=== PATIENT | female | born 1950 | race Two or more races ===

== ENCOUNTER 2017-06-07 00:49 | Emergency (ER) | payer OTHER ==
[~2017-06-07] VITALS: Ht 172.7 cm; Wt 72.6 kg
[2017-06-07] MEDS ORDERED: NORVASC2.5 M1 (00:51)
[2017-06-07] MEDS ORDERED: METOPROLOL SUCC50 MG (00:52)
[2017-06-07] MEDS ORDERED: METOCLOPRAMIDE10 MG PO (13:55)
[2017-06-07] MEDS ORDERED: MECLIZINE HCL25 MG PO (13:55)
== END 2017-06-07 14:22 | disposition home or self-care (01) ==
LOC: ER 00:49
DX: H81.10 Benign paroxysmal vertigo, unspecified ear (principal); R42 Dizziness and giddiness